=== PATIENT | male | born 1945 | race Two or more races ===

== ENCOUNTER 2021-08-16 23:13 | Inpatient (IN) | payer OTHER ==
[~2021-08-16] VITALS: Ht 172.7 cm; Wt 74.2 kg
[2021-08-17] VITALS (48 sets, daily range): BP systolic 124–147; BP diastolic 46–59
[2021-08-17] MEDS ORDERED: LABETALOL HCL 5 MG/ML 4ML SYRINGE IV ONE (00:15)
[2021-08-17] MEDS: ONDANSETRON HCL 4 MG/2 ML VIAL IV ONE ×2 (00:55→02:06)
[2021-08-17] MEDS ORDERED: cloNIDine HCL 0.1 MG TAB PO ONE (01:00)
[2021-08-17 01:33] LABS: INR 1.03 (0.9-1.15); Partial Thromboplastin Time 23.1 sec (23.6-33.0)
[2021-08-17 01:34] LABS: Albumin 3.5 g/dL (3.4-5.0); Calcium 8.8 mg/dL (8.5-10.1); Magnesium 2.3 mg/dL (1.6-2.6); Potassium 3.8 mmol/L (3.5-5.1)
[2021-08-17 01:36] LABS: BUN/Creatinine Ratio 18.2; Basophils # (auto) 0 10 ^3/uL (0-0.2); Basophils % (auto) 0.3 % (0.0-2.0); Eosinophils # (auto) 0 10 ^3/uL (0-0.8); Eosinophils % (auto) 0.3 % (0.0-7.0); Hematocrit 41.2 % (41.0-53.0); Hemoglobin 14.8 g/dL (13.5-17.5); Lymphocytes # (auto) 0.3 10 ^3/uL (0.4-5.4); Lymphocytes % (auto) 2.9 % (10.0-50.0); Mean Corpuscular Hemoglobin 31.3 pg (28.0-32.0); Mean Corpuscular Hgb Conc. 35.9 g/dL (32.0-36.0); Mean Corpuscular Volume 87.1 fL (80.0-100.0); Monocytes # (auto) 0.3 10 ^3/uL (0-1.3); Monocytes % (auto) 3.1 % (0.0-12.0); Neutrophils # (auto) 9.4 10 ^3/uL (1.6-8.6); Neutrophils % (auto) 93.4 % (37.0-80.0); Nucleated Red Blood Cells % 0.1 %; Red Blood Cells 4.73 10^6/uL (4.5-5.90); Red Cell Distribution Width 12.9 % (11.8-14.3); White Blood Cell 10.1 10^3/uL (4.4-10.8)
[2021-08-17 01:41] LABS: Bilirubin, Total 0.5 mg/dL (0.2-1.0); Total Protein 6.9 g/dL (6.4-8.2)
[2021-08-17] MEDS ORDERED: amLODIPine BESYLATE 5 MG TAB PO ONE (01:45)
[2021-08-17 02:15] LABS: Urine WBC None Seen /hpf (0 - 3)
[2021-08-17 02:33] LABS: Urine Bacteria NONE SEEN /hpf (None Seen); Urine Blood Negative /uL (Negative); Urine Specific Gravity 1.008 (1.001-1.035)
[2021-08-17] MEDS ORDERED: TEMAZEPAM 15 MG CAP PO PRN (04:00)
[2021-08-17] MEDS ORDERED: TEMAZEPAM 15 MG CAP PO ONE (04:00)
[2021-08-17] MEDS ORDERED: DOCUSATE SOD 100 MG CAP PO PRN (04:00)
[2021-08-17] MEDS ORDERED: NITROGLYCERIN 0.4 MG SL TAB SL PRN (04:00)
[2021-08-17] MEDS ORDERED: MORPHINE SULFATE INJECTION 2 MG/ML SYRG IV PRN (04:00)
[2021-08-17 06:17] LABS: Amphetamine Screen, Urine NEGATIVE (NEGATIVE); Barbiturate Scree,Urine NEGATIVE (NEGATIVE); Benzodiazephine Screen, Urine NEGATIVE (NEGATIVE); Cannabinoid Screen, Urine NEGATIVE (NEGATIVE); Cocaine Screen, Urine NEGATIVE (NEGATIVE)
[2021-08-17 06:21] LABS: Alcohol, Urine < 3.0 mg/dL (0-10); Opiate Scree,Urine NEGATIVE (NEGATIVE); Phencyclidine Screen, Urine NEGATIVE (NEGATIVE)
[2021-08-17] MEDS ORDERED: MECLIZINE HCL 25 MG TAB PO ONE (06:45)
[2021-08-17] MEDS: ONDANSETRON HCL 4 MG/2 ML VIAL IV PRN ×2 (06:46→21:07)
[2021-08-17] MEDS: ACETAMINOPHEN 325 MG TAB PO PRN (10:00)
[2021-08-17] MEDS: amLODIPine BESYLATE 5 MG TAB PO SCH (10:00)
[2021-08-17] MEDS ORDERED: TRIAMTERENE/HCTZ 37.5/25 MG CAP/TAB PO SCH (10:00)
[2021-08-17] MEDS: FAMOTIDINE 20 MG TAB PO SCH (10:00)
[2021-08-17] MEDS ORDERED: hydrALAZINE HCL 20 MG/ML VL IV PRN (12:00)
[2021-08-17] MEDS ORDERED: LORazepam 2MG/ML-1ML VIAL IV ONE (12:00)
[2021-08-17 12:48] LABS: Protein, Urine 77.3 mg/dL (0.0-11.9)
[2021-08-17 13:10] LABS: Creatinine, Urine 12.5 mg/dL (30.0-125.0)
[2021-08-17] MEDS ORDERED: DOPamine 1600MCG/ML D5W 250 ML IV ONE (13:17)
[2021-08-17] MEDS: SODIUM CHLORIDE 0.9% 1,000 ML IV SCH (14:00)
[2021-08-17] MEDS ORDERED: HYDR25TA4 PO (14:01)
[2021-08-17] MEDS ORDERED: TAM04C PO (14:01)
[2021-08-17] MEDS ORDERED: LEVO100T8 PO (14:01)
[2021-08-17] MEDS ORDERED: IBUP800T27 PO (14:01)
[2021-08-17] MEDS ORDERED: ARTISOL13 EACHEYE (14:01)
[2021-08-17 15:15] LABS: BUN/Creatinine Ratio 16.2; Potassium 4.1 mmol/L (3.5-5.1)
[2021-08-17] MEDS: TAMSULOSIN HYDROCHLORIDE 0.4 MG CAP PO SCH (18:24)
[2021-08-18] VITALS (36 sets, daily range): BP systolic 115–151; BP diastolic 52–92
[2021-08-18] MEDS: METOPROLOL TARTRATE 25 MG TAB PO SCH ×2 (00:44→09:40)
[2021-08-18] MEDS: SODIUM CHLORIDE 0.9% 1,000 ML IV SCH (04:40)
[2021-08-18] MEDS: LEVOTHYROXINE SODIUM 100 MCG TAB PO SCH (06:30)
[2021-08-18 06:32] LABS: Basophils # (auto) 0 10 ^3/uL (0-0.2); Basophils % (auto) 0.2 % (0.0-2.0); Eosinophils # (auto) 0 10 ^3/uL (0-0.8); Eosinophils % (auto) 0.3 % (0.0-7.0); Hematocrit 40.3 % (41.0-53.0); Hemoglobin 14.1 g/dL (13.5-17.5); Lymphocytes # (auto) 0.6 10 ^3/uL (0.4-5.4); Mean Corpuscular Hemoglobin 30.6 pg (28.0-32.0); Mean Corpuscular Hgb Conc. 34.9 g/dL (32.0-36.0); Mean Corpuscular Volume 87.8 fL (80.0-100.0); Monocytes # (auto) 0.9 10 ^3/uL (0-1.3); Monocytes % (auto) 8.7 % (0.0-12.0); Neutrophils # (auto) 8.8 10 ^3/uL (1.6-8.6); Neutrophils % (auto) 84.8 % (37.0-80.0); Nucleated Red Blood Cells % 0.1 %; Red Blood Cells 4.59 10^6/uL (4.5-5.90); Red Cell Distribution Width 13.2 % (11.8-14.3); White Blood Cell 10.4 10^3/uL (4.4-10.8)
[2021-08-18 06:51] LABS: Albumin 3.2 g/dL (3.4-5.0); Calcium 8.6 mg/dL (8.5-10.1); Magnesium 2.4 mg/dL (1.6-2.6); Potassium 3.9 mmol/L (3.5-5.1)
[2021-08-18 06:54] LABS: Bilirubin, Total 0.8 mg/dL (0.2-1.0); Total Protein 6.5 g/dL (6.4-8.2)
[2021-08-18] MEDS: ONDANSETRON HCL 4 MG/2 ML VIAL IV PRN ×2 (09:47→18:25)
[2021-08-18] MEDS: ACETAMINOPHEN 325 MG TAB PO PRN (09:47)
[2021-08-18] MEDS: amLODIPine BESYLATE 5 MG TAB PO SCH (09:47)
[2021-08-18] MEDS: FAMOTIDINE 20 MG TAB PO SCH (09:47)
[2021-08-18] MEDS ORDERED: AMLO-489 PO (11:00)
[2021-08-18] MEDS ORDERED: MIRA25TA OR (11:01)
[2021-08-18] MEDS ORDERED: ASPirin-EC 81 mg tab PO ONE (12:30)
[2021-08-18] MEDS: TAMSULOSIN HYDROCHLORIDE 0.4 MG CAP PO SCH (18:05)
[2021-08-18] MEDS ORDERED: ATORVASTATIN 20 MG TAB PO SCH (22:00)
[2021-08-18] MEDS: hydrALAZINE HCL 25 MG TAB PO SCH (22:00)
[2021-08-18] MEDS: PANTOPRAZOLE 40 MG TAB PO SCH (22:08)
[2021-08-19 00:02] VITALS: BP 140/73
[2021-08-19 05:00] VITALS: BP 155/77
[2021-08-19] MEDS: hydrALAZINE HCL 25 MG TAB PO SCH (06:23)
[2021-08-19] MEDS: LEVOTHYROXINE SODIUM 100 MCG TAB PO SCH (06:27)
[2021-08-19 07:56] LABS: BUN/Creatinine Ratio 33.3; Calcium 8.7 mg/dL (8.5-10.1); Potassium 3.8 mmol/L (3.5-5.1)
[2021-08-19 09:11] VITALS: BP 149/72
[2021-08-19] MEDS: PANTOPRAZOLE 40 MG TAB PO SCH (09:30)
[2021-08-19] MEDS: amLODIPine BESYLATE 5 MG TAB PO SCH (09:33)
[2021-08-19] MEDS ORDERED: ENOXAPARIN SOD 40 MG/0.4 ML SYRINGE SC SCH (10:00)
[2021-08-19] MEDS ORDERED: ASPirin-EC 81 mg tab PO SCH (10:00)
[2021-08-19] MEDS ORDERED: CLOPIDOGREL BISULFATE 75 MG TAB PO SCH (10:00)
[2021-08-19] MEDS ORDERED: LOSARTAN POTASSIUM 50 MG TAB PO ONE (12:00)
[2021-08-19 12:29] VITALS: BP 150/69
[2021-08-19] MEDS ORDERED: ASPI-378 PO (12:32)
[2021-08-19] MEDS ORDERED: AML5T PO (12:32)
[2021-08-19] MEDS ORDERED: CLOP75TA28 PO (12:32)
[2021-08-19] MEDS ORDERED: ATOR20TA PO (12:32)
[2021-08-19] MEDS ORDERED: LISI20TA28 PO (12:32)
[2021-08-19 14:41] VITALS: BP 149/72
[2021-08-19] MEDS: ACETAMINOPHEN 325 MG TAB PO PRN (15:35)
[2021-08-20 07:07] LABS: Immunoglobulin G, Serum 1003 mg/dL (603-1613)
[2021-08-20] MEDS ORDERED: LOSARTAN POTASSIUM 50 MG TAB PO SCH (10:00)
[2021-08-22 13:13] LABS: Hepatitis B Core IgM Negative
== END 2021-08-19 16:31 | disposition home health service (06) | DRG 65 ==
LOC: EDBD 23:13 → ER 23:23 → OVERFLOW 08-17 03:54 → ICU WEST 08-17 09:14 → TELE-WESTW 08-18 16:20
PROVIDERS: ADMIT Internal Medicine; ATTEND Internal Medicine
DX: I63.9 Cerebral infarction, unspecified (principal); I16.1 Hypertensive emergency; E87.1 Hypo-osmolality and hyponatremia; H70.91 Unspecified mastoiditis, right ear; N40.0 Benign prostatic hyperplasia without lower urinary tract symptoms; E03.9 Hypothyroidism, unspecified; E66.9 Obesity, unspecified; F17.200 Nicotine dependence, unspecified, uncomplicated; Z20.822 Contact with and (suspected) exposure to COVID-19; G47.33 Obstructive sleep apnea (adult) (pediatric); G89.29 Other chronic pain; M54.9 Dorsalgia, unspecified; R00.1 Bradycardia, unspecified; Z91.14 Patient's other noncompliance with medication regimen; G47.10 Hypersomnia, unspecified; Z68.24 Body mass index [BMI] 24.0-24.9, adult; Z79.02 Long term (current) use of antithrombotics/antiplatelets; Z79.82 Long term (current) use of aspirin; Z79.899 Other long term (current) drug therapy; Z82.49 Family history of ischemic heart disease and other diseases of the circulatory system; Z91.19 Patient's noncompliance with other medical treatment and regimen; Z90.49 Acquired absence of other specified parts of digestive tract
CPT/HCPCS: 36415; 70450; 70551; 71045; 80048; 80053; 80061; 80307; 81001; 82306; 82533; 82570; 82784; 83036; 83605; 83735; 83880; 83883; 83930; 83935; 84155; 84156; 84165; 84300; 84439; 84443; 84484; 84550; 84585; 85025; 85610; 85730; 86334; 86703; 86705; 86803; 87081; 87340; 93005; 93306; 93886; 96374; 96376; 97163; G0378; J2405